=== PATIENT | male | born 1970 | race Caucasian/White ===

== ENCOUNTER 2024-05-30 07:56 | Day surgery (SDC) | payer OTHER ==
[2024-05-26 13:14] VITALS: BMI 24.3
[2024-05-30 08:26] VITALS: RESP 20; TEMP 97.3
[2024-05-30] MEDS ORDERED: PROPOFOL 120 ML ONE (08:55)
[2024-05-30 09:54] VITALS: BP 106/57; PULSE 78
== END 2024-05-30 10:10 | disposition home or self-care (01) ==
LOC: FASU-ENDO 07:56
PROVIDERS: ATTEND Internal Medicine Gastroenterology
PROC: 0DJD8ZZ Inspection of Lower Intestinal Tract, Via Natural or Artificial Opening Endoscopic (ICD-10-PCS; principal; 2024-05-30 08:52)
DX: Z12.11 Encounter for screening for malignant neoplasm of colon (principal)